=== PATIENT | male | born 1960 | race Caucasian/White ===

== ENCOUNTER 2021-08-03 15:50 | Inpatient (IN) | payer OTHER ==
[~2021-08-03] VITALS: Ht 170.2 cm; Wt 106.6 kg
[~2021-08-03 15:50] MED LIST: JANUVIA50 MG PO
[2021-08-03 16:24] LABS: HEMOGLOBIN 15.8 gm/dl (14.0-17.5); RED BLOOD COUNT 5.49 M/UL (4.20-5.50); WHITE BLOOD COUNT 5.3 K/UL (4.5-11.0)
[2021-08-03 16:39] LABS: BUN/CREATININE RATIO 22 (0-10)
[2021-08-04] MEDS ORDERED: GABAPENTIN800 MG PO (01:00)
[2021-08-04] MEDS ORDERED: LISINOPRIL10 MG PO (01:01)
[2021-08-04] MEDS ORDERED: ADMELOG SO100 UNIT/1 SQ (01:02)
[2021-08-04] MEDS ORDERED: LANTUS SOL100 UNIT/1 SC (01:03)
[2021-08-04 10:28] LABS: HEMOGLOBIN 15.6 gm/dl (14.0-17.5); RED BLOOD COUNT 5.42 M/UL (4.20-5.50)
[2021-08-04 10:31] LABS: WHITE BLOOD COUNT 3.7 K/UL (4.5-11.0)
[2021-08-04 10:53] LABS: BUN/CREATININE RATIO 26 (0-10)
[2021-08-05 07:36] LABS: HEMOGLOBIN 14.3 gm/dl (14.0-17.5); RED BLOOD COUNT 5.19 M/UL (4.20-5.50)
[2021-08-05 07:37] LABS: WHITE BLOOD COUNT 6.7 K/UL (4.5-11.0)
[2021-08-05 08:41] LABS: BUN/CREATININE RATIO 23 (0-10)
[2021-08-06 06:48] LABS: HEMOGLOBIN 13.4 gm/dl (14.0-17.5); RED BLOOD COUNT 4.71 M/UL (4.20-5.50); WHITE BLOOD COUNT 6.7 K/UL (4.5-11.0)
[2021-08-06 07:09] LABS: BUN/CREATININE RATIO 23 (0-10)
[2021-08-07 06:47] LABS: HEMOGLOBIN 13.7 gm/dl (14.0-17.5); RED BLOOD COUNT 4.87 M/UL (4.20-5.50); WHITE BLOOD COUNT 6.1 K/UL (4.5-11.0)
[2021-08-07 08:43] LABS: BUN/CREATININE RATIO 19 (0-10)
[2021-08-08 08:08] LABS: HEMOGLOBIN 14.5 gm/dl (14.0-17.5); RED BLOOD COUNT 5.17 M/UL (4.20-5.50); WHITE BLOOD COUNT 8.4 K/UL (4.5-11.0)
[2021-08-08 08:14] LABS: BUN/CREATININE RATIO 16 (0-10)
[2021-08-08] MEDS ORDERED: MEDROL DOSEPAK 24 MG PO (10:39)
[2021-08-08] MEDS ORDERED: NYSTOP60 GM TOP (10:39)
[2021-08-08] MEDS ORDERED: ELIQUIS 5 MG TAB5 MG PO ×2 (10:39→10:45)
[2021-08-08] MEDS ORDERED: PROVENTIL HFA6.7 GM INH (10:39)
== END 2021-08-08 16:35 | disposition home health service (06) | DRG 177 ==
LOC: ER1 15:50 → MED SURG 4 17:28 → CDU 17:28 → MED SURG 4 21:34
PROVIDERS: Emergency Medicine; Internal Medicine; ADMIT Internal Medicine
PROC: XW033E5 Introduction of Remdesivir Anti-infective into Peripheral Vein, Percutaneous Approach, New Technology Group 5 (ICD-10-PCS; principal; 2021-08-03)
PROC: 3E0333Z Introduction of Anti-inflammatory into Peripheral Vein, Percutaneous Approach (ICD-10-PCS; 2021-08-03)
DX: U07.1 COVID-19 (principal); J96.21 Acute and chronic respiratory failure with hypoxia; J96.22 Acute and chronic respiratory failure with hypercapnia; J12.82 Pneumonia due to coronavirus disease 2019; I26.99 Other pulmonary embolism without acute cor pulmonale; I82.412 Acute embolism and thrombosis of left femoral vein; I82.432 Acute embolism and thrombosis of left popliteal vein; I82.452 Acute embolism and thrombosis of left peroneal vein; N17.9 Acute kidney failure, unspecified; B37.2 Candidiasis of skin and nail; I12.9 Hypertensive chronic kidney disease with stage 1 through stage 4 chronic kidney disease, or unspecified chronic kidney disease; E11.22 Type 2 diabetes mellitus with diabetic chronic kidney disease; N18.9 Chronic kidney disease, unspecified; G47.33 Obstructive sleep apnea (adult) (pediatric); E11.65 Type 2 diabetes mellitus with hyperglycemia; Z79.01 Long term (current) use of anticoagulants; Z79.4 Long term (current) use of insulin; Z80.8 Family history of malignant neoplasm of other organs or systems; Z80.0 Family history of malignant neoplasm of digestive organs
CPT/HCPCS: 36415; 36600; 71045; 71275; 80048; 80053; 82550; 82553; 82803; 82962; 83036; 83735; 83874; 83880; 84484; 85025; 85027; 85379; 93005; 93970; 94640; 94660; 94760; 96374; 99285; J0696; J1100; J1650; J7030; Q9967; U0002

== ENCOUNTER → 2022-04-14 | Outpatient (CLI) | payer OTHER ==
[~2022-04-14] MED LIST changes: +ADMELOG SO100 UNIT/1 SQ; +ELIQUIS 5 MG TAB5 MG PO; +GABAPENTIN800 MG PO; +LANTUS SOL100 UNIT/1 SC; +LISINOPRIL10 MG PO; +MEDROL DOSEPAK 24 MG PO; +NYSTOP60 GM TOP; +PROVENTIL HFA6.7 GM INH
== END ==
LOC: KOH-I 16:03
DX: M54.2 Cervicalgia (principal); M54.50 Low back pain, unspecified
CPT/HCPCS: 71046; 72040; 72070; 72100

== ENCOUNTER 2022-04-24 19:13 | Emergency (ER) | payer OTHER ==
[2022-04-24 20:29] LABS: HEMOGLOBIN 13.2 gm/dl (14.0-17.5); RED BLOOD COUNT 4.66 M/UL (4.20-5.50); WHITE BLOOD COUNT 8.7 K/UL (4.5-11.0)
[2022-04-24] MEDS ORDERED: ZOFRAN ODT 4 MG4 MG GT (21:07)
[2022-04-24] MEDS ORDERED: PERCOCET 5/325 T1 EA PO (21:07)
[2022-04-24] MEDS ORDERED: FLOMAX0.4 MG PO (21:13)
[2022-04-24] MEDS ORDERED: OMNICEF 300 MG300 MG PO (21:13)
== END 2022-04-24 23:00 | disposition home or self-care (01) ==
LOC: ER1 19:13
PROVIDERS: Physician Assistant
DX: R10.9 Unspecified abdominal pain (principal); R10.811 Right upper quadrant abdominal tenderness; R10.813 Right lower quadrant abdominal tenderness; R11.0 Nausea; M54.9 Dorsalgia, unspecified; R31.9 Hematuria, unspecified; R00.0 Tachycardia, unspecified; R30.0 Dysuria; E11.9 Type 2 diabetes mellitus without complications; I10 Essential (primary) hypertension; F17.210 Nicotine dependence, cigarettes, uncomplicated; Z87.442 Personal history of urinary calculi
CPT/HCPCS: 80053; 81001; 82150; 83690; 85025; 99284; J0696; J2270; J2405